=== PATIENT | female | born 1940 | race Caucasian/White ===

== ENCOUNTER → 2021-05-17 | Outpatient (CLI) | payer OTHER ==
[~2021-05-17] MED LIST: CALTRATE-600 W1 EACH PO; CENTRUM SILVER1 EAC5 PO; CO Q-10200 MG PO; COZAAR 50 MG TA50 MG PO; LEXAPRO 10 MG T10 M1 PO; LIPITOR 20 MG T20 M1 PO; MEGA B COMPLEX PO; PRESERVISION T1 EACH PO; VOLTAREN ARTHRI20 GM TOP
[2021-05-17 13:50] LABS: HEMATOCRIT 37.4 % (37.0-47.0); MCH 29.7 pg (26.0-34.0); MCHC 32.1 g/dL (28.0-37.0); MCV 92.7 fL (80.0-100.0); RBC 4.03 mil/uL (4.20-5.00); RDW 15.3 % (10.5-14.5); WBC 6.2 thou/uL (4.0-11.0)
[2021-05-17 14:03] LABS: INR 0.99; PROTIME 10.8 Seconds (10.5-12.1)
[2021-05-17 14:33] LABS: URINE BILIRUBIN NEGATIVE (Negative); URINE BLOOD NEGATIVE (Negative); URINE CLARITY CLEAR; URINE COLOR YELLOW; URINE GLUCOSE-RANDOM* NEGATIVE (Negative); URINE KETONES NEGATIVE (Negative); URINE LEUKOCYTES-REFLEX NEGATIVE (Negative); URINE NITRITE-REFLEX NEGATIVE (Negative); URINE PROTEIN (DIPSTICK) NEGATIVE (Negative); URINE SPECIFIC GRAVITY 1.015 (1.005-1.035); URINE UROBILINOGEN 0.2 E.U./dl (0.2-1.0)
[2021-05-17 15:17] LABS: ALBUMIN 3.5 g/dL (3.4-5.0); CALCIUM 8.9 mg/dL (8.5-10.1); CREATININE 0.7 mg/dL (0.6-1.0); POTASSIUM 4.2 mmol/L (3.5-5.1)
== END ==
LOC: PAC 08:09
PROVIDERS: Orthopaedic Surgery; ATTEND Orthopaedic Surgery Sports Medicine
DX: Z01.812 Encounter for preprocedural laboratory examination (principal); M17.12 Unilateral primary osteoarthritis, left knee

== ENCOUNTER 2021-05-27 09:56 | Observation (INO) | payer OTHER ==
[~2021-05-27] VITALS: Ht 165.1 cm; Wt 72.6 kg
[2021-05-27 12:16] VITALS: BP 148/82
[2021-05-27 15:30] VITALS: BP 142/74
[2021-05-27 16:00] VITALS: BP 166/84
[2021-05-27 19:18] VITALS: BP 107/56
[2021-05-27 20:00] VITALS: BP 107/56
[2021-05-28] VITALS (7 sets, daily range): BP systolic 98–135; BP diastolic 43–56
--- NOTE | 2021-05-28 02:10 | NUR ---
PT IS SLOWLY PROGRESSING TOWARD HER GOAL OF DISCHARGE. STATUS POST OP DAY 1 OF LEFT TOTAL KNEE REPLACEMENT. VSS, ON ROOM AIR. FREQUENT REPOSITIONING DUE TO INABILITY TO GET COMFORTABLE. LEFT KNEE WITH RALF DRESSING IN PLACE AND FUNCTIONING, WELL POLAR PACK. DENIES PAIN, IS RECEIVING SCHEDULED EXTENDED RELEASE PAIN MEDICATION. PT IS A&OX4 AND ABLE TO MAKE ALL WANTS AND NEEDS KNOWN TO STAFF. WILL CONTINUE TO OBSERVE FOR CHANGES.
--- NOTE | 2021-05-28 11:06 | NUR ---
ASSUMED CARE OF PT AT 0700 THIS MORNING. PT IS A/OX4 WITH RALF DRESSING ON LT HIP. PT IS POST OP DAY 2 LT TTL KNEE REPLACEMENT. ASSESSMENTS ARE NOTED IN CHART AND OTHERWISE UNREMARKABLE. PT WILL BE EVAL BY JETT CRUZ AND OT FOR POSSIBLE DISCHARGE. FALL PRECAUTIONS ARE IN PLACE. BRANDEE SAGASTUME IS OPERATING. MEDS AND TX GIVEN NEEDED AND SCHEDULED. CALL LIGHT AND OTHER NEEDS ARE IN REACH. WILL CONTINUE MONITORING AND NOTE ANY CHANGES. JETT CRUZ STATED PT IS ABLR TO GO HOME AND WILL NOTIFY SURGEON JOSE.
--- NOTE | 2021-05-28 15:42 | NUR ---
80-year-old female, LTK Arias, s/p day 1. She lives at home with her 2 sons. House has 3 steps in from the front and 4 steps in from the garage, and then all on main level for her inside the home. Independent. No home dme. Using oxygen currently. Will need to see if o2 can be tapered off or if she needs home oxygen for dc. Will need fww and provider plus to deliver walker prior to dc. Outpatient physical therapy already arranged with [facility] in [facility]. Will cont. following as needed. PCP Dr Soria
--- NOTE | 2021-05-29 06:20 | NUR ---
PATIENT RESTING IN HER ROOM AAOX4. SHE STATES THAT SHE IS HAVING SOME PAIN IN HER LEFT LEG. ADMINISTERED PRN MEDICATIONS. SHE IS CALM AND COOPERATIVE. DRESSING IS DRY AND INTACT. SCDS IN PLACE. COLD COMPRESS IN PLACE. PATIENT IS ON 2L NC. ALL OTHER VITALS ARE STABLE. ALL SAFETY PRECAUTIONS ARE IN PLACE.
[2021-05-29 06:27] VITALS: BP 131/78
[2021-05-29 06:56] VITALS: BP 125/60
--- NOTE | 2021-05-29 10:22 | NUR ---
A/O X 4. 3 L O2 VIA NASAL CANNULA. STAND BY ASSIT WITH WALKER-VERY SLOW GAIT. RALF DRESSING TO LEFT KNEE, POLAR PACK TO LEFT KNEE. NORCO GIVEN FOR PAIN. CURRENTLY WORKING WITH PT.
--- NOTE | 2021-05-29 12:34 | O ---
[facility] [place] [address] OPERATIVE REPORT Name: CARY SORTO Room #: 434-P [facility] Man Gunn#: [id number] Admission: 05/27/21 Attend Phys: Abiodun Krause MD Discharge: Date of : 38 Report #: [id number] THIS REPORT FOR: cc: FAM - Family physician unknown FAM - Family physician unknown Abiodun Krause MD ~ DATE OF SERVICE: 05/27/2021 PREOPERATIVE DIAGNOSIS: Left knee osteoarthritis. POSTOPERATIVE DIAGNOSIS: Left knee osteoarthritis. PROCEDURE: Left total knee arthroplasty using Navio robotic assistance. SURGEON: Abiodun Krause MD CHRISTIAN SCIENCE READER: Gabbie Shannon PA-C INDICATION FOR CHRISTIAN SCIENCE READER: Throughout the case, extensive retraction, manipulation of the knee was required. This was afforded to me by my process assistant. ANESTHESIA: LMA with adductor canal block. IMPLANTS: A [employer] size 6 Journey II BCS cobalt chrome femur, size 4 tibia, size 32 patella and a size 10 constrained polyethylene. TOURNIQUET TIME: 49 minutes. ESTIMATED BLOOD LOSS: 25 mL. COMPLICATIONS: None. SPECIMENS: None. CONDITION UPON LEAVING THE OR: Stable. INDICATIONS FOR PROCEDURE: The patient is an 80-year-old female with severe left knee osteoarthritis. She had failed conservative measures for this and after discussion with her, she elected for left total knee arthroplasty. DESCRIPTION OF PROCEDURE: Risks, benefits, alternatives, complications were discussed in detail with the patient including but not limited to risk of anesthesia, risk of damage to nerves, arteries, blood vessels, risk for infection, bleeding, risk for continued knee pain and need for reoperation. Informed consent was obtained from the patient. Left knee was appropriately marked in the preoperative holding area. IV Ancef was given for preoperative [address] [address] OPERATIVE REPORT Name: CARY SORTO Room #: 434-P [facility] Man Gunn#: [id number] Admission: 05/27/21 Attend Phys: Abiodun Krause MD Discharge: Date of : 39 Report #: [id number] antibiotics. Adductor canal block was placed by Anesthesia. She was brought to the operating room and placed in the supine position on the operating room table. LMA anesthesia was induced without complication. Tourniquet was placed on the left thigh. Left lower extremity was prepped and draped in normal sterile fashion. Timeout was performed properly identifying the patient, procedure as well as the instrumentation and implants. All in the operating room in agreement. Left lower extremity was exsanguinated, tourniquet was inflated. Tourniquet time was 49 minutes. Standard midline approach to the knee was made with 10 blade through the skin. Dissection was taken down sharply to the fascia and deep flaps were developed medially and laterally. Fresh 10 blade was used to make a medial parapatellar arthrotomy and the knee was inspected. There was severe lateral compartment osteoarthritis with moderate patellofemoral and medial compartment osteoarthritis. ACL and PCL were removed sharply. Reference pins were placed in the femur and the tibia. The knee was then digitally mapped using the [employer] robotic system. Intraoperative plan was made. We sized the size 6 tibia, size 4 tibia and a 10 spacer. After acceptance of the intraoperative plan, the distal femoral cut was made with Navio bur. Distal femoral cutting block was pinned in place and chamfer cuts were made. Attention was turned to the tibia. Remainder of the menisci removed with Bovie cautery. Tibial resection guide was pinned in place using Navio for placement and tibial resection was made. Flexion and extension gaps were checked and found to have good balance in flexion and extension both medially and laterally. Tibia was sized, found to be a size 4. Size 4 tibial trial was placed, pinned and punched. Size 6 femoral trial was placed and the box cut was made. This was then trialed with a size 10 polyethylene. Size 10 polyethylene demonstrated 1-2 mm of laxity laterally throughout range of motion of the knee. Medially, she did demonstrate up to 3-4 mm and this was expected given her underlying valgus deformity. It was felt we can make up for this with a constrained implant. A 9 mm of bone was resected from the posterior surface of the patella and a size 32 patellar trial ____, was found to be stable, found to have good patellar tracking. Trial components were removed. Bone ends were thoroughly irrigated with normal saline. A final size 4 tibia, size 6 Journey II BCS cobalt chrome femur and a size 32 patella were cemented in place using standard cementation techniques. While the cement cured, a periarticular injection consisting of morphine, ropivacaine, epinephrine, Toradol was placed around the knee joint capsule. After the cement cured, the tourniquet was deflated. Hemostasis was obtained with Bovie cautery. A final size 10 constrained polyethylene was placed. A gram of vancomycin was placed deep in the joint. Fascia was closed with 0 Vicryl. Skin was closed with 2-0 Vicryl, skin staple and a RALF dressing was applied. The patient tolerated this [address] [address] OPERATIVE REPORT Name: CARY SORTO Room #: 434-P [facility] Man Gunn#: [id number] Admission: 05/27/21 Attend Phys: Abiodun Krause MD Discharge: Date of : 39 Report #: [id number] procedure well and went to recovery room under care of Anesthesia postoperatively. <ELECTRONICALLY SIGNED> By: Abiodun Krause MD 05/29/21 1234 [id number] Abiodun Krause MD /nt
== END 2021-05-29 13:10 | disposition home or self-care (01) ==
LOC: OR → PRE 10:05 → OR 10:19 → PRE 10:23 → OR 11:04 → PRE 11:04 → OR 11:05 → EDSTATUS 11:07 → PRE 11:45 → OR 12:48 → PRE 13:19 → OR 13:25 → PRE 13:31 → OR 13:44 → PRE 13:44 → OR 13:54 → PRE 13:55 → OR 14:15 → PRE 14:19 → OR 14:29 → PRE 14:43 → OR 14:46 → PRE 14:50 → 4S 14:52 → PRE 15:01 → OR 15:20 → PRE 15:24 → OR 15:53 → PRE 16:01 → OR 16:14 → PRE 16:24 → OR 16:25 → PRE 17:09 → OR 17:27 → 4S 05-29 13:10
PROVIDERS: ADMIT Orthopaedic Surgery; ATTEND Orthopaedic Surgery
DX: M17.12 Unilateral primary osteoarthritis, left knee (principal); Z20.822 Contact with and (suspected) exposure to COVID-19; M17.11 Unilateral primary osteoarthritis, right knee; J44.9 Chronic obstructive pulmonary disease, unspecified; Z79.899 Other long term (current) drug therapy
CPT/HCPCS: 10102; 50010; 50101; 50415; 50954; 51130; 51225; 51412; 53000; 53078; 56527; 56528; 57095; 57103; 57110; 57127; 57180; 58239; 59024; 62110; 62900; 64041; 70005